=== PATIENT | female | born 1975 | race Caucasian/White ===

== ENCOUNTER → 2016-09-04 | Outpatient (CLI) | payer BC | LOC: RAD 10:52 | DX: M25.551 Pain in right hip (principal); M25.552 Pain in left hip | CPT/HCPCS: 73522 ==

== ENCOUNTER → 2021-05-02 | Outpatient (CLI) | payer OTHER ==
[2021-05-02 13:36] LABS: BUN/CREATININE RATIO 19 (0-10)
== END ==
LOC: LAB 12:08
PROVIDERS: Internal Medicine
DX: I50.22 Chronic systolic (congestive) heart failure (principal)
CPT/HCPCS: 36415; 80048

== ENCOUNTER → 2021-05-21 | Outpatient (CLI) | payer OTHER ==
[2021-05-21 13:29] LABS: BUN/CREATININE RATIO 14 (0-10)
== END ==
LOC: LAB 12:13
PROVIDERS: Nurse Practitioner Family
DX: I50.22 Chronic systolic (congestive) heart failure (principal)
CPT/HCPCS: 36415; 80048

== ENCOUNTER 2021-10-20 20:40 | Emergency (ER) | payer BC ==
[2021-10-20 21:07] LABS: HEMOGLOBIN 13.3 gm/dl (12.3-15.3); RED BLOOD COUNT 4.63 M/UL (4.00-5.10); WHITE BLOOD COUNT 10.1 K/UL (4.5-11.0)
[2021-10-20 21:30] LABS: BUN/CREATININE RATIO 14 (0-10)
[2021-10-20] MEDS ORDERED: AMOXICILLIN500 MG PO (23:52)
== END 2021-10-20 23:55 | disposition home or self-care (01) ==
LOC: ER1 20:40
PROVIDERS: Student in an Organized Health Care Education/Training Program
DX: J02.9 Acute pharyngitis, unspecified (principal); R00.2 Palpitations; R00.0 Tachycardia, unspecified; I10 Essential (primary) hypertension
CPT/HCPCS: 71045; 80053; 82550; 82553; 84439; 84443; 84484; 85025; 85379; 93005; 96360; 99285